=== PATIENT | male | born 1980 | race Caucasian/White ===

== ENCOUNTER 2020-10-25 16:13 | Emergency (ER) | payer OTHER ==
[2020-10-25 18:17] LABS: BASOPHIL 0.3 % (0-2); EOSINOPHIL 0 % (0-5); HCT 41.4 % (42.0-52.0); HGB 13.7 g/dl (13.2-18.0); LYMPHOCYTE 8.8 % (15-48); MCH 29.8 pg (25.0-31.0); MCHC 33.1 g/dL (32.0-36.0); MCV 90.2 fL (78.0-100.0); MONOCYTE 10.8 % (0-12); MPV 7.9 fL (6.0-9.5); NEUTROPHIL 79.6 % (41-80); NRBC 0; PLT 279 K/uL (150-400); RBC 4.59 M/uL (4.70-6.00); RDW 12.4 % (11.5-14.0)
[2020-10-25] MEDS ORDERED: KEFLEX250 MG PO (20:12)
[2020-10-25] MEDS ORDERED: BACTRIM DS TAB1 EACH PO (20:12)
== END 2020-10-25 20:20 | disposition home or self-care (01) ==
LOC: FER 16:13
PROVIDERS: Nurse Practitioner Family
DX: L02.211 Cutaneous abscess of abdominal wall (principal); L03.311 Cellulitis of abdominal wall; F17.210 Nicotine dependence, cigarettes, uncomplicated; Z23 Encounter for immunization
CPT/HCPCS: 36415; 85025; 87070; 87186; 87205; 90715

== ENCOUNTER 2021-04-09 15:16 | Emergency (ER) | payer OTHER ==
[~2021-04-09 15:16] MED LIST: BACTRIM DS TAB1 EACH PO; KEFLEX250 MG PO
== END 2021-04-09 16:36 | disposition home or self-care (01) ==
LOC: FER 15:16
DX: R51.9 Headache, unspecified (principal)
CPT/HCPCS: 99283; J1885